=== PATIENT | male | born 1955 | race Asian ===

== ENCOUNTER 2018-09-03 12:52 | Outpatient (CLI) | payer OTHER ==
--- NOTE | 2018-09-09 19:01 | ULT ---
LOWER EXTREMITY ARTERIAL EVALUATION WITH DOPPLER WAVEFORM ANALYSIS AND SEGMENTAL LIMB PRESSURES: 09/03/18 Examination of the right leg shows an abnormal femoral waveform and an amputation preventing further evaluation. On the left leg the femoral, popliteal, posterior tibial and dorsalis pedis waveforms are also fairly abnormal with an ankle-arm index of 0.34 also suggesting severe vascular disease. This study suggests lower extremity vascular disease on the left leg with prior right leg amputation and could be consistent with rest pain or nonhealing ulcer.
== END 2018-09-03 12:53 | disposition home or self-care (01) ==
LOC: ULT 12:52
PROVIDERS: ATTEND Internal Medicine Geriatric Medicine
DX: I73.9 Peripheral vascular disease, unspecified (principal)
CPT/HCPCS: 93922

== ENCOUNTER 2020-02-22 12:55 | Outpatient (CLI) | payer OTHER ==
--- NOTE | 2020-02-22 14:32 | CT ---
CT PULMONARY LUNG SCAN: History: Personal history of nicotine dependence. Comparison: None.. Findings: Lung screening specific (lung-RADS): No suspicious pulmonary nodule. Potentially significant incidentals (lung-RADS category S): Negative. Pulmonary incidentals: Scattered calcified granulomas. Mild tubular bronchiectasis in the lower lobes and upper lobes. No pneumothorax. No effusion. Other incidentals: No adenopathy. Thoracic spine is intact. Dense bone island T8 vertebral body. Impression: 1. Lung RADS category 2: Benign appearance or behavior. Recommend screening chest CT in 12 months. 2. Lung RADS category S: Negative. No new or unknown potentially significant incidental findings requ iring urgent additional evaluation. Transcribed Date/Time: 02/22/2020 2:48 PM
== END 2020-02-22 12:56 | disposition home or self-care (01) ==
LOC: BICCT 12:55
PROVIDERS: ATTEND Family Medicine
DX: Z12.2 Encounter for screening for malignant neoplasm of respiratory organs (principal); F17.210 Nicotine dependence, cigarettes, uncomplicated
CPT/HCPCS: G0297

== ENCOUNTER 2021-03-10 10:53 | Outpatient (CLI) | payer MEDICARE | END 2021-03-10 10:54 | disposition home or self-care (01) | LOC: BICCT 10:53 | PROVIDERS: ATTEND Family Medicine | DX: Z12.2 Encounter for screening for malignant neoplasm of respiratory organs (principal); F17.219 Nicotine dependence, cigarettes, with unspecified nicotine-induced disorders | CPT/HCPCS: 71271 ==

== ENCOUNTER 2021-11-14 12:31 | Outpatient (CLI) | payer MEDICARE | END 2021-11-14 12:32 | disposition home or self-care (01) | LOC: BICULT 12:31 | PROVIDERS: ATTEND Internal Medicine Nephrology | DX: N18.30 Chronic kidney disease, stage 3 unspecified (principal); N27.1 Small kidney, bilateral | CPT/HCPCS: 76770 ==